=== PATIENT | male | born 1960 | race Caucasian/White ===

== ENCOUNTER 2020-12-15 16:55 | Emergency (ER) | payer OTHER, SELFPAY ==
--- NOTE | ~2020-12-15 | XR_ITS ---
EXAMINATION: XR FINGER, RIGHT CLINICAL INFORMATION: Laceration to the right index finger COMPARISON: None TECHNIQUE: Three views of the right index finger. FINDINGS: Soft tissue defect and soft tissue swelling of the index finger. The bones are normal. No fracture. Alignment is anatomic. Joint spaces are maintained. XR/XR finger RT min 2V IMPRESSION: Soft tissue defect and soft tissue swelling of the index finger.
[2020-12-15 18:40] VITALS: BP 141/94; PULSE 64; RESP 18; TEMP 36.1; O2SAT 98
--- NOTE | 2020-12-15 18:42 | ED.WOUNDLAC ---
HPI - Wound/Laceration General Chief Complaint: Wound/Laceration Stated Complaint: Laceration Time Seen by Provider: 12/15/20 18:38 Source: patient Mode of arrival: ambulatory Limitations: no limitations History of Present Illness HPI narrative: 60 y/o male presenting with right index finger lacerations that he sustained today at work when he was moving sheet metal. He is able to fully bend and extend his finger. When he moves it too much there is active bleeding that stops with direct pressure. He has no sensory deficits. He is not on blood thinners. Unknown Tdap. Onset (ago): hour(s) Extremity Location: right: hand (index) Place: work Patient tetanus UTD: No Context: accidental Associated symptoms: pain Treatments prior to arrival: bandage Related Data Previous Rx's Medication Instructions Recorded cephalexin 500 mg PO Q8H #9 cap 12/15/20 Allergies Allergy/AdvReac Type Severity Reaction Status Date / Time No Known Allergies Allergy Verified 12/15/20 18:35 Review of Systems Review of Systems: Constitutional: No Fever, No Chills Gastrointestinal: No Nausea, No Vomiting Musculoskeletal: + joint pain, No Myalgias Skin: + Skin Lesions, No rash Neuro: No Weakness, No Numbness Psych: + Anxiety/Panic, No Depression Heme/Lymph: No Bruising PMFSH Past Medical History Attestation statement: The following information was validated with the patient. Social History Social History Advance Directives: No Advance Directives Information Provided: No Physical Exam Vital Signs: Vital Signs: Last Vital Signs Temp 96.9 F 12/15/20 18:40 Pulse 64 12/15/20 18:40 Resp 18 12/15/20 18:40 BP 141/94 H 12/15/20 18:40 Pulse Ox 98 12/15/20 18:40 Appearance: Alert. Oriented X3. No acute distress. HEENT: normal inspection CVS: Normal heart rate and rhythm. Pulses normal. Respiratory: No respiratory distress. Skin: Skin warm and dry. Normal skin color. Normal skin turgor. No rashes. Extremities: right index finger with two superficial lacerations to the distal aspect between DIP and PIP joints. slight oozing. NV intact distally. full ROM of finger Neuro: Oriented X 3. No motor deficit. No sensory deficit. Course Course Course Narrative: 60 y/o male presenting with lacerations to right index finger at work. Will suture closed, get XR to r/o fracture and give tdap. Reevaluation(s) Reevaluation #1: XR negative for bony involvement. Tolerated procedure well. Stable for d/c home with wound care. Procedures Laceration Laceration 1: Site: hand Side (If applicable): right Size (cm): 2 Description: linear Depth: simple, single layer Local Anesthetic: lidocaine 2% Pre-repair: irrigated extensively and deep structures intact Skin layer closed with: nylon Size (cm): 5-0 Number of sutures: 5 Technique: simple, interrupted Critical Care Time Critical Care Time Critical Care Time: No Discharge Plan Discharge Clinical Impression: Laceration Patient Disposition: Home, Self-Care Instructions: Finger Laceration (ED) Additional Instructions: Your x-ray today did not show any broken bones. Do not get your wound wet for at least 24 hours. Keep elevated and use ice to help with pain and swelling. After that your can briefly wash with soap and water then dry. Use bacitracin ointment 2 times per day. Keep clean and covered. Take the antibiotics as prescribed to help prevent infection. Your sutures will need to be removed in 7 days. Come back to the ER or see your doctor. If you develop new or worsening symptoms call 911 or come back to the ER for further evaluation. Prescriptions: New cephalexin 500 mg capsule 500 mg PO Q8H Qty: 9 RF: 0
[2020-12-15] MEDS: Lidocaine HCl 2 % MPF 5 ML VIAL INFILTRATI (18:55)
[2020-12-15] MEDS: Diphth,Pertus(ACell),Tet Adult 0.5 ML SYRINGE IM (18:56)
[2020-12-15 19:25] VITALS: BMI 26.5
== END 2020-12-15 20:06 | disposition home or self-care (01) ==
PROVIDERS: Emergency Provider Emergency Medicine
DX: S61.210A Laceration without foreign body of right index finger without damage to nail, initial encounter (principal); W26.8XXA Contact with other sharp object(s), not elsewhere classified, initial encounter; Y93.9 Activity, unspecified; Y92.89 Other specified places as the place of occurrence of the external cause; Y99.0 Civilian activity done for income or pay
CPT/HCPCS: 12001; 73140; 90471; 90715; 99282; 99284